=== PATIENT | female | born 1935 | race Caucasian/White ===

== ENCOUNTER → 2016-09-02 | Outpatient (CLI) | payer MEDICARE ==
--- NOTE | ~2016-09-02 | CT71 ---
[facility] A Service of [facility] / [facility] RADIOLOGY TEXT RESULTS PATIENT: RAUL ABREU LOCATION: [facility] : 31 UNIT #: [id number] AGE: [address]: Jitendra Parkinson MD SEX: F ORDER DR: [id number] [place] [id number] MR#: [id number] Acc #: [id number] NAME: RAUL ABREU : 1935 SEX: F STUDY DATE/TIME: 09/01/2016 13:41 UNIT: [facility] ROOM: STUDY DESCRIPTION: CT Head Wo Contrast Attending Physician: Jitendra Parkinson M.D. Referring Physician: Jitendra Parkinson M.D. Ordering Physician: Jitendra Parkinson M.D. Primary Care Physician: Jitendra Parkinson M.D. MEDICAL IMAGING REPORT This report is preliminary unless electronic signature is present. EXAM Head CT no contrast 09/01/2016 PROCEDURE Routine unenhanced head CT. This CT exam was performed with one or more of the following radiation dose reduction techniques: automatic exposure control, adjustment of mA and/or kV according to patient size, and iterative reconstruction. COPIOUS None HISTORY Impairment of taste sensation for four months. Dysguesia. FINDINGS There is no intracranial hemorrhage. There is mild volume loss and nonspecific white matter change, neither exceptional for age. There is no hydrocephalus or extraaxial fluid collection. The extracranial soft tissues are normal. The skull base and calvarium are unremarkable. IMPRESSION Minimal white matter change and volume loss. Neither unusual for age. Otherwise, normal negative unenhanced head CT. Dictated by... Adan Serrano M.D. THIS IS AN ELECTRONICALLY VERIFIED REPORT [facility] A Service of [facility] / [facility] RADIOLOGY TEXT RESULTS PATIENT: RAUL ABREU LOCATION: [facility] : 31 UNIT #: [id number] AGE: [address]: Jitendra Parkinson MD SEX: F ORDER DR: Adan Serrano M.D. at 09/03/2016 5:30 PM TEV/to TD: 09/01/2016 15:47 JOB #: [id number] MEDICAL IMAGING REPORT Page 1 of 1
== END | disposition home or self-care (01) ==
LOC: SCT 09-01 13:00
DX: R43.9 Unspecified disturbances of smell and taste (principal)
CPT/HCPCS: 70450